=== PATIENT | female | born 1990 | race Caucasian/White ===

== ENCOUNTER 2017-07-31 20:21 | Emergency (ER) | payer BC, OTHER ==
[2017-07-31] MEDS ORDERED: LIDOCAINE VISCOUS 2% SOLN 15 ML UDC ONE (22:08)
[2017-07-31] MEDS ORDERED: ALBUTEROL 2.5 MG/3 ML NEB SOL ONE (23:35)
[2017-07-31] MEDS ORDERED: IPRATROPIUM BROM 0.5MG/2.5ML ONE (23:35)
--- NOTE | 2017-08-01 00:22 | ER ---
Nurse's Notes [facility] Name: Bettie Salazar Age: 26 yrs Sex: Female : 1990 Arrival Date: 07/31/2017 Time: 20:34 Bed 16 Private MD: Diagnosis: Shortness of breath Presentation: 07/31 20:45 Presenting complaint: Patient states: I have been having chest pain, blurred vision, la1 since Thursday ever since I had an exam done with barium which I am allergic to. Transition of care: patient was not received from another setting of care. Onset of symptoms was July 31, 2017. Care prior to arrival: None. 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 - Social history:: Smoking status: Patient/guardian denies using tobacco. - Family history:: not pertinent. Screenin:33 Abuse screen: Denies threats or abuse. Nutritional screening: No deficits noted. tl2 Tuberculosis screening: No symptoms or risk factors identified. Fall Risk None identified. Assessment: 21:33 General: Appears in no apparent distress. uncomfortable, Behavior is calm, cooperative, tl2 appropriate for age. Pain: Complains of pain in throat, chest Pain does not radiate. Neuro: Level of Consciousness is awake, alert, obeys commands, Oriented to person, place, time, situation. Cardiovascular: Heart tones S1 S2 present Chest pain quality is sharp, is located in epigastric area substernal area began 1 day ago. Respiratory: Airway is patent Respiratory effort is even, unlabored, Respiratory pattern is regular, symmetrical, Parent/caregiver reports the patient having hoarse voice. GI: No signs and/or symptoms were reported involving the gastrointestinal system. : No signs and/or symptoms were reported regarding the genitourinary system. Derm: Skin is pink, warm \T\ dry. 22:35 Reassessment: Patient appears in no apparent distress at this time. Patient and/or tl2 family updated on plan of care and expected duration. Pain level reassessed. Patient is alert, oriented x 3, equal unlabored respirations, skin warm/dry/pink. Patient states feeling better. 23:59 Reassessment: Patient appears in no apparent distress at this time. Patient and/or tl2 family updated on plan of care and expected duration. Pain level reassessed. Patient is alert, oriented x 3, equal unlabored respirations, skin warm/dry/pink. Pt states she would like to go home after breathing treatment. MD notified. Vital Signs: 20:48 BP 151 / 100; Pulse 97; Resp 15; Temp 97.6(TE); Pulse Ox 100% on R/A; Weight 96.62 kg; la1 Height 5 ft. 6 in. (167.64 cm); 21:33 BP 119 / 80; Pulse 80; Resp 18; Pulse Ox 100% on R/A; tl2 22:35 BP 113 / 88; Pulse 79; Resp 18; Pulse Ox 100% on R/A; tl2 23:19 BP 117 / 74; Pulse 87; Resp 18; Pulse Ox 100% on R/A; tl2 08/01 00:03 BP 136 / 80; Pulse 87; Resp 18; Pulse Ox 97% on R/A; tl2 07/31 20:48 Body Mass Index 34.38 (96.62 kg, 167.64 cm) la1 ED Course: 07/31 20:34 Patient arrived in ED. do 20:46 Triage completed. la1 20:48 Arm band placed on right wrist. la1 21:06 Shane Patterson MD is Attending Physician. ma2 21:32 Ree Urena, MELO is Primary Nurse. tl2 21:33 Patient has correct armband on for positive identification. Bed in low position. Call tl2 light in reach. Side rails up X 1. Adult w/ patient. Pulse ox on. NIBP on. 21:33 Flu and/or RSV swab sent to lab. Strep swab sent to lab. Patient maintains SpO2 tl2 saturation greater than 95% on room air. 21:48 XRAY Chest (1 view) In Process Unspecified. EDMS 21:49 X-ray completed. Portable x-ray completed in exam room. Patient tolerated procedure kc2 well. 08/01 00:30 No provider procedures requiring assistance completed. Patient did not have IV access tl1 during this emergency room visit. Administered Medications: 07/31 22:11 Drug: Viscous Lidocaine Liquid (4 %) 15 ml Route: Mucous Membrane; tl1 23:54 Not Given (Patient Refused): Benadryl 25 mg IM once tl2 23:54 Drug: Albuterol - atroVENT (3:1) (2.5 mg - 0.5 mg) 3 ml Route: Nebulizer; tl2 08/01 00:31 Follow up: Response: No adverse reaction; Marked relief of symptoms tl1 Outcome: 00:22 Discharge ordered by . ma2 00:29 Discharged to home ambulatory. tl1 00:29 Condition: good 00:29 Discharge instructions given to patient, Instructed on discharge instructions, follow up and referral plans. medication usage, Demonstrated understanding of instructions, follow-up care, medications, Prescriptions given X 1. 00:31 Patient left the ED. tl1 Signatures: Dispatcher [employer] EDMS Silvio Kirkland RN RN la1 Chapis Monge RN RN tl1 Sera Carlson Kelsie 2 Ree Urena RN RN tl2 Shane Patterson MD MD ma2
--- NOTE | 2017-08-01 00:22 | EDPHYS ---
Physician Documentation [facility] Name: Bettie Salazar Age: 26 yrs Sex: Female : 1990 Arrival Date: 07/31/2017 Time: 20:34 Bed 16 Private MD: ED Physician Shane Patterson HPI: 07/31 21:56 This 26 yrs old Female presents to ER via Ambulatory with complaints of Chest ma2 Pain, Breathing Difficulty, Blurred Vision. 21:56 The patient or guardian reports chest pain that is located primarily in the anterior ma2 chest wall. The pain does not radiate. Associated signs and symptoms: Pertinent positives: sore throat, dysphagia and constant chest pain x 1 day since her EGD and intubation . The chest pain is described as aching. Duration: The patient or guardian reports a single episode, that is still ongoing. Severity of pain: At its worst the pain was mild moderate. The patient has not experienced similar symptoms in the past. 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 - Social history:: Smoking status: Patient/guardian denies using tobacco. - Family history:: not pertinent. ROS: 21:56 Constitutional: Negative for fever, chills, and weight loss, Eyes: Negative for injury, ma2 pain, redness, and discharge, Neck: Negative for injury, pain, and swelling, Respiratory: Negative for shortness of breath, cough, wheezing, and pleuritic chest pain, Abdomen/GI: Negative for abdominal pain, nausea, diarrhea, and constipation, Back: Negative for injury and pain, : Negative for injury, bleeding, discharge, and swelling, MS/Extremity: Negative for injury and deformity, Skin: Negative for injury, rash, and discoloration, Neuro: Negative for headache, weakness, numbness, tingling, and seizure, Psych: Negative for depression, anxiety, suicide ideation, homicidal ideation, and hallucinations, Allergy/Immunology: Negative for hives, rash, and allergies, Endocrine: Negative for neck swelling, polydipsia, polyuria, polyphagia, and marked weight changes, Hematologic/Lymphatic: Negative for swollen nodes, abnormal bleeding, and unusual bruising. Exam: 21:56 Constitutional: This is a well developed, well nourished patient who is awake, alert, ma2 and in no acute distress. Head/Face: Normocephalic, atraumatic. Eyes: Pupils equal round and reactive to light, extra-ocular motions intact. Lids and lashes normal. Conjunctiva and sclera are non-icteric and not injected. Cornea within normal limits. Periorbital areas with no swelling, redness, or edema. ENT: Nares patent. No nasal discharge, no septal abnormalities noted. Tympanic membranes are normal and external auditory canals are clear. Oropharynx with no redness, swelling, or masses, exudates, or evidence of obstruction, uvula midline. Mucous membranes moist. Neck: Trachea midline, no thyromegaly or masses palpated, and no cervical lymphadenopathy. Supple, full range of motion without nuchal rigidity, or vertebral point tenderness. No Meningismus. Chest/axilla: Normal chest wall appearance and motion. Nontender with no deformity. No lesions are appreciated. Cardiovascular: Regular rate and rhythm with a normal S1 and S2. No gallops, murmurs, or rubs. Normal PMI, no JVD. No pulse deficits. Respiratory: Lungs have equal breath sounds bilaterally, clear to auscultation and percussion. No rales, rhonchi or wheezes noted. No increased work of breathing, no retractions or nasal flaring. Abdomen/GI: Soft, non-tender, with normal bowel sounds. No distension or tympany. No guarding or rebound. No evidence of tenderness throughout. 21:56 ENT: Posterior pharynx: swelling, is not appreciated, erythema, that is mild, peritonsillar mass, is not appreciated. Vital Signs: 20:48 BP 151 / 100; Pulse 97; Resp 15; Temp 97.6(TE); Pulse Ox 100% on R/A; Weight 96.62 kg; la1 Height 5 ft. 6 in. (167.64 cm); 21:33 BP 119 / 80; Pulse 80; Resp 18; Pulse Ox 100% on R/A; tl2 22:35 BP 113 / 88; Pulse 79; Resp 18; Pulse Ox 100% on R/A; tl2 23:19 BP 117 / 74; Pulse 87; Resp 18; Pulse Ox 100% on R/A; tl2 08/01 00:03 BP 136 / 80; Pulse 87; Resp 18; Pulse Ox 97% on R/A; tl2 07/31 20:48 Body Mass Index 34.38 (96.62 kg, 167.64 cm) la1 MDM: 07/31 21:07 Patient medically screened. ma2 21:56 Differential diagnosis: gastroesophageal reflux disease (GERD), hiatal hernia, ma2 Licha-Yusuf syndrome. 08/01 00:19 Data reviewed: vital signs, nurses notes, patient has prolonged expiratory phase her ma2 SOB improved after albuterol. her symptoms are likely allergic response to the contrast she received 2 days ago with the GI follow through . Medication response: albuterol nebulizer treatment(s) relieved the patient's symptoms. The patient is no longer wheezing. 07/31 21:33 Order name: Flu; Complete Time: 22:51 tl2 07/31 21:33 Order name: Strep; Complete Time: 22:51 2 07/31 21:35 Order name: XRAY Chest (1 view) ok2 07/31 22:08 Order name: Throat Culture EDAZ 07/31 21:07 Order name: NPO; Complete Time: 21:12 ma2 07/31 22:07 Order name: Misc. Order: lidocaine viscus po 15 ml; Complete Time: 22:09 ma2 Administered Medications: 07/31 22:11 Drug: Viscous Lidocaine Liquid (4 %) 15 ml Route: Mucous Membrane; tl1 23:54 Not Given (Patient Refused): Benadryl 25 mg IM once tl2 23:54 Drug: Albuterol - atroVENT (3:1) (2.5 mg - 0.5 mg) 3 ml Route: Nebulizer; tl2 08/01 00:31 Follow up: Response: No adverse reaction; Marked relief of symptoms tl1 Disposition: 08/01/17 00:22 Discharged to Home. Impression: Shortness of breath. - Condition is Stable. - Discharge Instructions: Shortness of Breath, [id number]. - Prescriptions for Albuterol Sulfate 90 mcg/actuation - inhale 1-2 puff by INHALATION route every 4-6 hours; 1 Inhaler. - Medication Reconciliation Form, Thank You Letter, Antibiotic Education, Prescription Opioid Use form. - Follow up: Private Physician; When: Tomorrow; Reason: Continuance of care. - Problem is new. - Symptoms have improved. Signatures: Dispatcher [employer] EDMS Silvio Kirkland RN RN la1 Chapis Monge RN RN tl1 Ree Urena RN RN tl2 Shane Patterson MD MD ma2
--- NOTE | 2017-08-01 07:22 | RAD REPORT ---
EXAM DESCRIPTION: RAD - Chest Single View - 07/31/2017 9:48 pm CLINICAL HISTORY: Chest pain, recent upper endoscopy COMPARISON: None. TECHNIQUE: AP portable chest image was obtained 2145 hours . FINDINGS: Lungs are clear. Heart and vasculature are normal. No measurable pleural effusion and no p neumothorax. No gross bony abnormality seen. No acute aortic finding. Trachea is midline. No suspicio n for pneumomediastinum and no evidence for free air under the diaphragm. IMPRESSION: No acute cardiopulmonary process.
== END 2017-08-01 00:31 | disposition home or self-care (01) ==
LOC: ER 20:21
DX: R06.02 Shortness of breath (principal); Z88.6 Allergy status to analgesic agent; Z88.8 Allergy status to other drugs, medicaments and biological substances
CPT/HCPCS: 71045; 87070; 87081; 87804; 94640; 99285